=== PATIENT | female | born 1995 | race Caucasian/White ===

== ENCOUNTER 2016-05-19 07:33 | Inpatient (IN) | payer SELFPAY ==
[2016-05-19 08:51] LABS: APPEARANCE,URINE CLOUDY; BILIRUBIN,URINE NEGATIVE (NEGATIVE); GLUCOSE, URINE NEGATIVE (NEGATIVE); KETONES,URINE NEGATIVE (NEGATIVE); LEUKOCYTE ESTERASE,URINE LARGE (NEGATIVE); NITRITE,URINE NEGATIVE (NEGATIVE); PROTEIN,URINE 100 mg/dL (NEGATIVE); URINE SPECIFIC GRAVITY 1.014; UROBILINOGEN,URINE NEGATIVE mg/dL (<2.0)
--- NOTE | 2016-05-19 09:12 | ER Document Report ---
ED General - General Chief Complaint: Flank Pain Stated Complaint: RIB PAIN Mode of Arrival: Ambulatory Information source: Patient Notes: 20-year-old female presents with complaints of left flank pain associated with burning on urination over the past week. Patient notes she took over-the- counter Azo with improvement of the burning. Patient notes intermittent fever at night admits to one episode of nausea TRAVEL OUTSIDE OF THE [place] IN LAST 30 DAYS: No - HPI Onset: Last week Onset/Duration: Persistent, Worse Quality of pain: Achy Severity: Mild Pain Level: 1 Associated symptoms: Fever, Nausea Exacerbated by: Denies Relieved by: Denies Similar symptoms previously: No Recently seen / treated by doctor: No - Related Data Allergies/Adverse Reactions: Penicillins Allergy (Verified 05/19/16 07:44) Past Medical History - Social History Smoking Status: Never Smoker Cigarette use (# per day): No Chew tobacco use (# tins/day): No Smoking Education Provided: No Frequency of alcohol use: None Drug Abuse: None Family History: Reviewed & Not Pertinent Patient has suicidal ideation: No Patient has homicidal ideation: No Renal/ Medical History: Denies: Hx Peritoneal Dialysis Surgical Hx: Negative Review of Systems - Review of Systems Notes: REVIEW OF SYSTEMS: CONSTITUTIONAL : Denies fever, chills, or sweats. Denies recent illness. EENT: Denies eye, ear, throat, or mouth pain or symptoms. Denies nasal or sinus congestion or discharge. Denies throat, tongue, or mouth swelling or difficulty swallowing. CARDIOVASCULAR: Denies chest pain. Denies palpitations or racing or irregular heart beat. Denies ankle edema. RESPIRATORY: Denies cough, cold, or chest congestion. Denies shortness of breath, difficulty breathing, or wheezing. GASTROINTESTINAL: Admits to left flank pain GENITOURINARY: Admits to burning on urination FEMALE GENITOURINARY: Denies vaginal bleeding, heavy or abnormal periods, irregular periods. Denies vaginal discharge or odor. MUSCULOSKELETAL: Denies back or neck pain or stiffness. Denies joint pain or swelling. SKIN: Denies rash, lesions or sores. HEMATOLOGIC : Denies easy bruising or bleeding. LYMPHATIC: Denies swollen, enlarged glands. NEUROLOGICAL: Denies confusion or altered mental status. Denies passing out or loss of consciousness. Denies dizziness or lightheadedness. Denies headache. Denies weakness or paralysis or loss of use of either side. Denies problems with gait or speech. Denies sensory loss, numbness, or tingling. Denies seizures. PSYCHIATRIC: Denies anxiety or stress. Denies depression, suicidal ideation, or homicidal ideation. ALL OTHER SYSTEMS REVIEWED AND NEGATIVE. Dictation was performed using [employer] voice recognition software PHYSICAL EXAMINATION: GENERAL: Well-appearing, well-nourished and in no acute distress. HEAD: Atraumatic, normocephalic. EYES: Pupils equal round and reactive to light, extraocular movements intact, conjunctiva are normal. ENT: Nares patent, oropharynx clear without exudates. Moist mucous membranes. NECK: Normal range of motion, supple without lymphadenopathy LUNGS: Breath sounds clear to auscultation bilaterally and equal. No wheezes rales or rhonchi. HEART: Regular rate and rhythm without murmurs was noted to be 140 on arrival patient was anxious at that time ABDOMEN: Soft, nontender, nondistended abdomen. No guarding, no rebound. No masses appreciated. Female : deferred Musculoskeletal: Normal range of motion, no pitting or edema. No cyanosis. NEUROLOGICAL: Cranial nerves grossly intact. Normal speech, normal gait. Normal sensory, motor exams PSYCH: Normal mood, normal affect. SKIN: Warm, Dry, normal turgor, no rashes or lesions noted. Physical Exam - Vital signs Vitals: Temp Resp BP Pulse Ox 98.9 F 18 132/87 H 99 05/19/16 07:38 05/19/16 07:38 05/19/16 07:38 05/19/16 07:38 Course - Re-evaluation Re-evalutation: 05/19/16 09:11 Patient looks extremely well, urinalysis is consistent with an infectious process. Given that she is flank pain and fevers it appears the patient has pyelonephritis at this time. Patient will be started on antibiotics and is otherwise stable for discharge After performing a Medical Screening Examination, I estimate there is LOW risk for ACUTE APPENDICITIS, BOWEL OBSTRUCTION, ACUTE CHOLECYSTITIS, PERFORATED DIVERTICULITIS, INCARCERATED HERNIA, PANCREATITIS, PELVIC INFLAMMATORY DISEASE, PERFORATED ULCER, ECTOPIC , or TUBO-OVARIAN ABSCESS, thus I consider the discharge disposition reasonable. Also, there is no evidence or peritonitis , sepsis, or toxicity. The patient and I have discussed the diagnosis and risks , and we agree with discharging home with close follow-up with the understanding that symptoms and presentations can change. We also discussed returning to the Emergency Department immediately if new or worsening symptoms occur. We have discussed the symptoms which are most concerning (e.g., bloody stool, fever, changing or worsening pain, vomiting) that necessitate immediate return. - Vital Signs Vital signs: Temp Pulse Resp BP Pulse Ox 98.9 F 140 H 18 132/87 H 99 05/19/16 07:38 05/19/16 07:45 05/19/16 07:38 05/19/16 07:38 05/19/16 07:38 - Laboratory Laboratory results interpreted by me: 05/19/16 08:23 Urine Protein 100 H Urine Blood MODERATE H Ur Leukocyte Esterase LARGE H Discharge - Discharge Clinical Impression: Pyelonephritis, Flank pain Condition: Stable Disposition: HOME, SELF-CARE Instructions: Pyelonephritis ([facility]) Additional Instructions: Follow up with your physician tomorrow for further care or return to the ED IMMEDIATELY if symptoms worsen or new concerns occur Prescriptions: Ciprofloxacin HCl [Cipro 500 mg Tablet] 500 mg PO BID #20 tablet Ondansetron [Zofran Odt 4 mg Tablet] 1 - 2 tab PO Q4H PRN #15 tab.rapdis PRN Reason: For Nausea/Vomiting
[2016-05-19] MEDS: NORMAL SALINE 1000 ML 1,000 ML IV PRN ×4 (09:22→21:53)
[2016-05-19] MEDS ORDERED: KETOROLAC TROMETHAMINE INJ/PF 30 MG/1 ML SDV IV ONE (09:46)
[2016-05-19 10:48] LABS: HEMATOCRIT 45.1 % (36.0-47.0); HEMOGLOBIN 14.5 g/dL (12.0-15.5); HGB HCT DIFFERENCE -1.6; MEAN CORPUSCULAR HEMOGLOBIN 27.9 pg (27.0-33.4); MEAN CORPUSCULAR HGB CONC 32.2 g/dL (32.0-36.0); MEAN CORPUSCULAR VOLUME 87 fl (80-97); WHITE BLOOD COUNT 19.9 10^3/uL (4.0-10.5)
[2016-05-19 11:04] LABS: ALANINE AMINOTRANSFERASE 41 U/L (9-52); ALBUMIN 4.1 g/dL (3.5-5.0); ALKALINE PHOSPHATASE 90 U/L (38-126); ANION GAP 12 (5-19); ASPARTATE AMINO TRANSFERASE 27 U/L (14-36); BLOOD UREA NITROGEN 13 mg/dL (7-20); CALCIUM 9.7 mg/dL (8.4-10.2); CARBON DIOXIDE 22 mmol/L (22-30); CHLORIDE 107 mmol/L (98-107); CREATININE RESULT 0.73 mg/dL (0.52-1.25); GLUCOSE 83 mg/dL (75-110); POTASSIUM 3.9 mmol/L (3.6-5.0); SODIUM 140.7 mmol/L (137-145); TOTAL PROTEIN 7.6 g/dL (6.3-8.2)
[2016-05-19 11:17] LABS: BASOPHILS % (MANUAL) 0 % (0-2); EOSINOPHILS % (MANUAL) 0 % (0-6); LYMPHOCYTES % (MANUAL) 4 % (13-45); TOTAL CELLS COUNTED 100
[2016-05-19 11:18] LABS: ANISOCYTOSIS SLIGHT
[2016-05-19] MEDS ORDERED: NORMAL SALINE 1000 ML 1,000 ML IV ONE (11:21)
[2016-05-19] MEDS ORDERED: CIPROFLOXACIN 200 MG/D5W RTU 100 ML IV SCH (12:00)
[2016-05-19] MEDS ORDERED: CIPROFLOXACIN 200 MG/D5W RTU 200 MG/100 ML RTUPB IV ONE (13:00)
--- NOTE | 2016-05-19 14:26 | PDOC H&P ---
History of Present Illness Admission Date/PCP: 05/19/16 13:49 Patient complains of: Urinary burning and frequency. Fever and weakness History of Present Illness: WALESKA BERNAL is a 20 year old female who reports to [facility] emergency department this afternoon, with complaints of fever, weakness, left flank pain and urinary burning and frequency. She states her symptoms began 2 days ago and have worsened significantly today. She does not have a history of frequent urinary tract infections she states she's had 1 prior. She denies any nausea, vomiting or abdominal pain. She denies any vaginal discharge. She states her last menstrual cycle was 2 weeks prior. She has no prior health history. She was found to the ER provider to be very tachycardic with a heart rate in the 140s to 150s, with a systolic blood pressure in the 90s. She states her temperature was 102 prior to her arrival here. She had taken ibuprofen at home prior to her coming into the hospital. Her temperature is now 100.2. Past Medical History Cardiac Medical History: Reports: None Pulmonary Medical History: Reports: None EENT Medical History: Reports: None Neurological Medical History: Reports: None Endocrine Medical History: Reports: None Renal/ Medical History: Reports: None Malignancy Medical History: Reports: None GI Medical History: Reports: None Musculoskeltal Medical History: Reports: None Skin Medical History: Reports: None Psychiatric Medical History: Reports: None Traumatic Medical History: Reports: None Hematology: Reports: None Infectious Medical History: Reports: None Social History Information Source: Patient Lives with: Spouse/Significant other Smoking Status: Never Smoker Frequency of Alcohol Use: Rare Hx Recreational Drug Use: No Hx Prescription Drug Abuse: No - Advance Directive Resuscitation Status: Full Code Surrogate healthcare decision maker:: Jatin Miller Family History Family History: Reviewed & Not Pertinent Parental Family History Reviewed: Yes Children Family History Reviewed: NA Sibling(s) Family History Reviewed.: Yes Medication/Allergy Allergies/Adverse Reactions: Penicillins Allergy (Verified 05/19/16 07:44) Review of Systems Constitutional: PRESENT: chills, fever(s), weakness Eyes: ABSENT: visual disturbances Ears: PRESENT: as per HPI Cardiovascular: ABSENT: chest pain, dyspnea on exertion, edema, orthropnea, palpitations Respiratory: ABSENT: cough, hemoptysis Genitourinary: ABSENT: dysuria, hematuria Musculoskeletal: ABSENT: joint swelling Integumentary: ABSENT: rash, wounds Neurological: ABSENT: abnormal gait, abnormal speech, confusion, dizziness, focal weakness, syncope Psychiatric: ABSENT: anxiety, depression, homidical ideation, suicidal ideation Endocrine: ABSENT: cold intolerance, heat intolerance, polydipsia, polyuria Hematologic/Lymphatic: ABSENT: easy bleeding, easy bruising Physical Exam Vital Signs: Temp Pulse Resp BP Pulse Ox 98.4 F 136 H 18 136/76 H 100 05/19/16 11:46 05/19/16 11:46 05/19/16 07:38 05/19/16 09:12 05/19/16 11:46 General appearance: PRESENT: no acute distress, well-developed, well-nourished Head exam: PRESENT: atraumatic, normocephalic Eye exam: PRESENT: conjunctiva pink, EOMI, PERRLA. ABSENT: scleral icterus Mouth exam: PRESENT: moist, tongue midline Neck exam: ABSENT: carotid bruit, JVD, lymphadenopathy, thyromegaly Respiratory exam: PRESENT: clear to auscultation h[place]. ABSENT: rales, rhonchi, wheezes Cardiovascular exam: PRESENT: RRR. ABSENT: diastolic murmur, rubs, systolic murmur Pulses: PRESENT: normal dorsalis pedis pul Vascular exam: PRESENT: normal capillary refill GI/Abdominal exam: PRESENT: normal bowel sounds, soft. ABSENT: distended, guarding, mass, organolmegaly, rebound, tenderness Rectal exam: PRESENT: deferred Extremities exam: PRESENT: full ROM. ABSENT: calf tenderness, clubbing, pedal edema Neurological exam: PRESENT: alert, awake, oriented to person, oriented to place , oriented to time, oriented to situation, CN II-XII grossly intact. ABSENT: motor sensory deficit Psychiatric exam: PRESENT: appropriate affect, normal mood. ABSENT: homicidal ideation, suicidal ideation Skin exam: PRESENT: dry, intact, warm. ABSENT: cyanosis, rash Results Impressions: Limited or Localized CT 05/19/16 11:21 IMPRESSION: NO SIGNIFICANT OR ACUTE PROCESS IN THE ABDOMEN OR PELVIS. Assessment & Plan - Diagnosis (1) Sepsis Qualifiers: Sepsis type: sepsis due to unspecified organism Is this a current diagnosis for this admission?: YesPlan: Patient will be fluid resuscitated and given IV broad spectrum antibiotics (2) Pyelonephritis Is this a current diagnosis for this admission?: YesPlan: IV antibiotics. Toradol for pain (3) Flank pain Is this a current diagnosis for this admission?: YesPlan: Toradol 30 mg IV prn - Time Time Spent: 50 to 70 Minutes Critical Time spent with patient: 25-34 minutes Medications reviewed and adjusted accordingly: Yes Anticipated discharge: Home
[2016-05-19] MEDS: ACETAMINOPHEN 325 MG TABLET PO PRN ×2 (15:23→19:30)
[2016-05-19] MEDS: KETOROLAC TROMETHAMINE INJ/PF 30 MG/1 ML SDV IV PRN ×2 (15:51→22:07)
[2016-05-19] MEDS ORDERED: MORPHINE SULFATE 10 MG/ML INJ IV PRN ×2 (19:41→19:56)
[2016-05-19] MEDS ORDERED: CEFTRIAXONE 1 GM/D5W RTU 1 GM/50 ML RTUPB IV ONE (20:00)
[2016-05-19] MEDS ORDERED: MORPHINE SULFATE 10 MG/ML INJ IV ONE (20:00)
[2016-05-19] MEDS: ONDANSETRON HCL INJ/PF 4 MG/2 ML SDV IV PRN (20:08)
[2016-05-19] MEDS: CIPROFLOXACIN 400 MG/D5W RTU 200 ML IV SCH (21:53)
[2016-05-19] MEDS ORDERED: CIPROFLOXACIN 200 MG/D5W RTU 200 MG/100 ML RTUPB IV SCH (22:00)
[2016-05-20] MEDS: ACETAMINOPHEN 325 MG TABLET PO PRN ×4 (00:29→20:07)
[2016-05-20] MEDS: ZOLPIDEM TARTRATE 5 MG TABLET PO PRN (00:43)
[2016-05-20 07:37] LABS: HEMATOCRIT 39.3 % (36.0-47.0); HEMOGLOBIN 12.9 g/dL (12.0-15.5); HGB HCT DIFFERENCE -0.6; MEAN CORPUSCULAR HEMOGLOBIN 28.2 pg (27.0-33.4); MEAN CORPUSCULAR HGB CONC 32.8 g/dL (32.0-36.0); MEAN CORPUSCULAR VOLUME 86 fl (80-97); RED BLOOD COUNT 4.57 10^6/uL (3.72-5.28); RED CELL DISTRIBUTION WIDTH 14.1 % (11.5-14.0); WHITE BLOOD COUNT 23.6 10^3/uL (4.0-10.5)
[2016-05-20 07:48] LABS: ANION GAP 9 (5-19); BLOOD UREA NITROGEN 8 mg/dL (7-20); CALCIUM 8.7 mg/dL (8.4-10.2); CARBON DIOXIDE 19 mmol/L (22-30); CHLORIDE 114 mmol/L (98-107); CREATININE RESULT 0.67 mg/dL (0.52-1.25); GLUCOSE 104 mg/dL (75-110); POTASSIUM 4.5 mmol/L (3.6-5.0); SODIUM 142.3 mmol/L (137-145)
[2016-05-20 08:01] LABS: BAND NEUTROPHILS % (MANUAL) 7 % (3-5); BASOPHILS % (MANUAL) 1 % (0-2); EOSINOPHILS % (MANUAL) 0 % (0-6); LYMPHOCYTES % (MANUAL) 4 % (13-45); TOTAL CELLS COUNTED 100
[2016-05-20 08:03] LABS: BURR CELLS SLIGHT; OVALOCYTES SLIGHT; POIKILOCYTOSIS SLIGHT
[2016-05-20] MEDS: KETOROLAC TROMETHAMINE INJ/PF 30 MG/1 ML SDV IV PRN ×2 (09:15→20:09)
--- NOTE | 2016-05-20 09:22 | PDOC PROGRESS REPORT ---
Subjective Progress Note for:: 05/20/16 Subjective:: Patient is seen on morning rounds. She is resting in bed. She is still having left flank pain and low grade fevers. Her tachycardia has improved but not resolved. She denies any other symptoms. She does not have much of an appetite at the present time. She is sometimes nauseated, but denies vomiting or diarrhea. Her fiance is at the bedside. Physical Exam Vital Signs: Temp Pulse Resp BP Pulse Ox 99.9 F 124 H 18 137/84 H 98 05/20/16 07:55 05/20/16 07:55 05/20/16 07:55 05/20/16 07:55 05/20/16 07:55 Intake & Output 05/19/16 05/20/16 05/21/16 06:59 06:59 06:59 Output Total 700 Balance -700 Weight 69.4 kg General appearance: PRESENT: no acute distress, well-developed, well-nourished Head exam: PRESENT: atraumatic, normocephalic Eye exam: PRESENT: conjunctiva pink, EOMI, PERRLA. ABSENT: scleral icterus Ear exam: PRESENT: normal external ear exam Mouth exam: PRESENT: moist, tongue midline Neck exam: ABSENT: carotid bruit, JVD, lymphadenopathy, thyromegaly Respiratory exam: PRESENT: clear to auscultation h[place]. ABSENT: rales, rhonchi, wheezes Cardiovascular exam: PRESENT: RRR. ABSENT: diastolic murmur, rubs, systolic murmur Pulses: PRESENT: normal dorsalis pedis pul Vascular exam: PRESENT: normal capillary refill GI/Abdominal exam: PRESENT: normal bowel sounds, soft, other - mild left CVA tenderness. ABSENT: distended, guarding, mass, organolmegaly, rebound, tenderness Rectal exam: PRESENT: deferred Extremities exam: PRESENT: full ROM. ABSENT: calf tenderness, clubbing, pedal edema Neurological exam: PRESENT: alert, awake, oriented to person, oriented to place , oriented to time, oriented to situation, CN II-XII grossly intact. ABSENT: motor sensory deficit Psychiatric exam: PRESENT: appropriate affect, normal mood. ABSENT: homicidal ideation, suicidal ideation Skin exam: PRESENT: dry, intact, warm. ABSENT: cyanosis, rash Results Laboratory Results: 05/20/16 07:18 05/20/16 07:18 05/20/16 05/20/16 07:18 07:18 WBC 23.6 H RBC 4.57 Hgb 12.9 Hct 39.3 MCV 86 MCH 28.2 MCHC 32.8 RDW 14.1 H Plt Count 128 L Seg Neutrophils % Not Reportable Lymphocytes % Not Reportable Monocytes % Not Reportable Eosinophils % Not Reportable Basophils % Not Reportable Absolute Neutrophils Not Reportable Absolute Lymphocytes Not Reportable Absolute Monocytes Not Reportable Absolute Eosinophils Not Reportable Absolute Basophils Not Reportable Sodium 142.3 Potassium 4.5 Chloride 114 H Carbon Dioxide 19 L Anion Gap 9 BUN 8 Creatinine 0.67 Est GFR ( Amer) > 60 Est GFR (Non-Af Amer) > 60 Glucose 104 Calcium 8.7 Impressions: Limited or Localized CT 05/19/16 11:21 IMPRESSION: NO SIGNIFICANT OR ACUTE PROCESS IN THE ABDOMEN OR PELVIS. Assessment & Plan - Diagnosis (1) Sepsis Qualifiers: Sepsis type: sepsis due to unspecified organism Qualified Code(s): A41.9 - Sepsis, unspecified organism Is this a current diagnosis for this admission?: YesPlan: Patient will be fluid resuscitated and given IV broad spectrum antibiotics. Still having low grade fevers, tachycardia. Will add double antibiotic coverage until cultures return (2) Pyelonephritis Is this a current diagnosis for this admission?: YesPlan: IV antibiotics. Toradol for pain (3) Flank pain Is this a current diagnosis for this admission?: YesPlan: Toradol 30 mg IV prn - Time Time Spent with patient: 25-34 minutes Critical Time spent with patient: 15-24 minutes Medications reviewed and adjusted accordingly: Yes Anticipated discharge: Home
[2016-05-20] MEDS: CEFTRIAXONE 1 GM/D5W RTU 1 GM/50 ML RTUPB IV SCH (09:33)
[2016-05-20] MEDS: CIPROFLOXACIN 400 MG/D5W RTU 200 ML IV SCH (10:52)
[2016-05-20] MEDS ORDERED: CEFAZOLIN 1 GM/D5W RTU 50 ML IV SCH (12:00)
[2016-05-20] MEDS: NORMAL SALINE 1000 ML 1,000 ML IV PRN ×2 (14:02→22:55)
[2016-05-20] MEDS: ONDANSETRON HCL INJ/PF 4 MG/2 ML SDV IV PRN (14:02)
[2016-05-20] MEDS ORDERED: LEVOFLOXACIN 750 MG/D5W RTU 750 MG/150 ML RTUPB IV ONE (17:00)
[2016-05-21] MEDS: ZOLPIDEM TARTRATE 5 MG TABLET PO PRN (02:34)
[2016-05-21] MEDS: ONDANSETRON HCL INJ/PF 4 MG/2 ML SDV IV PRN ×3 (02:34→16:34)
[2016-05-21] MEDS: KETOROLAC TROMETHAMINE INJ/PF 30 MG/1 ML SDV IV PRN (04:29)
[2016-05-21] MEDS: ACETAMINOPHEN 325 MG TABLET PO PRN (04:30)
[2016-05-21] MEDS: NORMAL SALINE 1000 ML 1,000 ML IV PRN (07:54)
[2016-05-21] MEDS: CEFTRIAXONE 1 GM/D5W RTU 1 GM/50 ML RTUPB IV SCH (09:11)
[2016-05-21 09:16] LABS: HGB HCT DIFFERENCE -0.5; MEAN CORPUSCULAR HEMOGLOBIN 28.4 pg (27.0-33.4); MEAN CORPUSCULAR HGB CONC 32.9 g/dL (32.0-36.0); MEAN CORPUSCULAR VOLUME 86 fl (80-97); RED CELL DISTRIBUTION WIDTH 14.3 % (11.5-14.0); WHITE BLOOD COUNT 22.6 10^3/uL (4.0-10.5)
[2016-05-21 09:37] LABS: BAND NEUTROPHILS % (MANUAL) 7 % (3-5); BASOPHILS % (MANUAL) 0 % (0-2); EOSINOPHILS % (MANUAL) 0 % (0-6); LYMPHOCYTES % (MANUAL) 4 % (13-45); TOTAL CELLS COUNTED 100
[2016-05-21 09:38] LABS: RBC MORPHOLOGY COMMENT NORMO-CYTIC/CHROMIC
[2016-05-21] MEDS ORDERED: LEVOFLOXACIN 750 MG/D5W RTU 750 MG/150 ML RTUPB IV SCH (10:00)
[2016-05-21 10:19] LABS: HEMOGLOBIN 10.5 g/dL (12.0-15.5)
[2016-05-21] MEDS ORDERED: NORMAL SALINE 1000 ML 1,000 ML IV PRN (12:53)
[2016-05-21] MEDS: IBUPROFEN 800 MG TABLET PO PRN (15:50)
[2016-05-22] MEDS ORDERED: ONDANSETRON 4 MG TAB.RAPDIS ONE (02:13)
[2016-05-22 06:44] LABS: ABSOLUTE LYMPHOCYTES (AUTO) 1.2 10^3/uL (0.5-4.7); ABSOLUTE MONOCYTES (AUTO) 1.1 10^3/uL (0.1-1.4); ABSOLUTE NEUT (AUTO) 11.8 10^3/uL (1.7-8.2); BASOPHILS % (AUTO) 0.2 % (0-2); EOSINOPHILS % (AUTO) 0.3 % (0-6); HEMATOCRIT 31.7 % (36.0-47.0); HEMOGLOBIN 10.5 g/dL (12.0-15.5); HGB HCT DIFFERENCE -0.2; LYMPHOCYTES % (AUTO) 8.6 % (13-45); MEAN CORPUSCULAR HEMOGLOBIN 28.2 pg (27.0-33.4); MEAN CORPUSCULAR HGB CONC 33.1 g/dL (32.0-36.0); MEAN CORPUSCULAR VOLUME 85 fl (80-97); MONOCYTES % (AUTO) 7.7 % (3-13); RED BLOOD COUNT 3.72 10^6/uL (3.72-5.28); RED CELL DISTRIBUTION WIDTH 14.2 % (11.5-14.0); SEGMENTED NEUTROPHILS % (AUTO) 83.2 % (42-78); WHITE BLOOD COUNT 14.2 10^3/uL (4.0-10.5)
[2016-05-22] MEDS: IBUPROFEN 800 MG TABLET PO PRN (06:52)
--- NOTE | 2016-05-22 07:59 | PDOC PROGRESS REPORT ---
Subjective Progress Note for:: 05/21/16 Subjective:: Patient is seen on morning rounds. She is resting in bed. She is no longer having flank pain or fever. Her tachycardia has improved but not resolved. She has had several episodes of vomiting She denies any other symptoms. She does not have much of an appetite at the present time. Her fiance is at the bedside. Physical Exam Vital Signs: Temp Pulse Resp BP Pulse Ox 98.8 F 115 H 18 127/82 H 100 05/22/16 04:00 05/22/16 04:00 05/22/16 04:00 05/22/16 04:00 05/21/16 19:00 Intake & Output 05/21/16 05/22/16 05/23/16 06:59 06:59 06:59 Intake Total 2211 967 Output Total 3100 1500 Balance -889 -533 Weight 71.5 kg General appearance: PRESENT: no acute distress, well-developed, well-nourished Head exam: PRESENT: atraumatic, normocephalic Eye exam: PRESENT: conjunctiva pink, EOMI, PERRLA. ABSENT: scleral icterus Ear exam: PRESENT: normal external ear exam Mouth exam: PRESENT: moist, tongue midline Neck exam: ABSENT: carotid bruit, JVD, lymphadenopathy, thyromegaly Respiratory exam: PRESENT: clear to auscultation [place]. ABSENT: rales, rhonchi, wheezes Cardiovascular exam: PRESENT: RRR. ABSENT: diastolic murmur, rubs, systolic murmur Pulses: PRESENT: normal dorsalis pedis pul Vascular exam: PRESENT: normal capillary refill GI/Abdominal exam: PRESENT: normal bowel sounds, soft. ABSENT: distended, guarding, mass, organolmegaly, rebound, tenderness Rectal exam: PRESENT: deferred Extremities exam: PRESENT: full ROM. ABSENT: calf tenderness, clubbing, pedal edema Neurological exam: PRESENT: alert, awake, oriented to person, oriented to place , oriented to time, oriented to situation, CN II-XII grossly intact. ABSENT: motor sensory deficit Psychiatric exam: PRESENT: appropriate affect, normal mood. ABSENT: homicidal ideation, suicidal ideation Skin exam: PRESENT: dry, intact, warm. ABSENT: cyanosis, rash Results Laboratory Results: 05/22/16 06:34 05/20/16 07:18 05/21/16 05/22/16 08:35 06:34 WBC 22.6 H 14.2 H RBC 3.70 L 3.72 Hgb 10.5 L D 10.5 L Hct 32.0 L 31.7 L MCV 86 85 MCH 28.4 28.2 MCHC 32.9 33.1 RDW 14.3 H 14.2 H Plt Count 151 193 Seg Neutrophils % Not Reportable 83.2 H Lymphocytes % Not Reportable 8.6 L Monocytes % Not Reportable 7.7 Eosinophils % Not Reportable 0.3 Basophils % Not Reportable 0.2 Absolute Neutrophils Not Reportable 11.8 H Absolute Lymphocytes Not Reportable 1.2 Absolute Monocytes Not Reportable 1.1 Absolute Eosinophils Not Reportable 0.0 Absolute Basophils Not Reportable 0.0 Impressions: Limited or Localized CT 05/19/16 11:21 IMPRESSION: NO SIGNIFICANT OR ACUTE PROCESS IN THE ABDOMEN OR PELVIS. Assessment & Plan - Diagnosis (1) Sepsis Qualifiers: Sepsis type: sepsis due to unspecified organism Qualified Code(s): A41.9 - Sepsis, unspecified organism Is this a current diagnosis for this admission?: YesPlan: Patient will be fluid resuscitated and given IV broad spectrum antibiotics. Still having low grade fevers, tachycardia. Will add double antibiotic coverage until cultures return (2) Pyelonephritis Is this a current diagnosis for this admission?: YesPlan: IV antibiotics. Toradol for pain (3) Flank pain Is this a current diagnosis for this admission?: YesPlan: Toradol 30 mg IV prn - Time Time Spent with patient: 25-34 minutes Critical Time spent with patient: 15-24 minutes Medications reviewed and adjusted accordingly: Yes
[2016-05-22 09:38] VITALS: BP 127/82
--- NOTE | 2016-05-22 11:52 | PDOC DISCHARGE SUMMARY ---
General - Admit/Disc Date/PCP Admission Date/Primary Care Provider: 05/19/16 13:23 Discharge Date: 05/22/16 - Discharge Diagnosis (1) Sepsis Is this a current diagnosis for this admission?: YesSummary: Resolved. Secondary to pyelonephritis (2) Pyelonephritis Is this a current diagnosis for this admission?: YesSummary: Continue antibiotics by mouth (3) Flank pain Is this a current diagnosis for this admission?: Yes - Additional Information Resuscitation Status: Full Code Discharge Diet: Regular Discharge Activity: Activity As Tolerated, Balance Activity w/Rest Home Medications: Acetaminophen [Tylenol 325 mg Tablet] 650 mg PO Q4HP PRN tablet 05/22/16 Ibuprofen 800 mg PO Q8HP PRN #30 tablet 05/22/16 Ibuprofen [Motrin 800 mg Tablet] 800 mg PO Q8HP PRN #30 tablet 05/22/16 Levofloxacin [Levaquin 750 mg Tablet] 750 mg PO DAILY #5 tablet 05/22/16 Ondansetron [Zofran Odt 4 mg Tablet] 1 - 2 tab PO Q4HP PRN #10 tab.rapdis History of Present Illness Patient complains of: Fever, left flank pain and dysuria History of Present Illness: WALESKA BERNAL is a 20 year old female who reports to [facility] emergency department this afternoon, with complaints of fever, weakness, left flank pain and urinary burning and frequency. She states her symptoms began 2 days ago and have worsened significantly today. She does not have a history of frequent urinary tract infections she states she's had 1 prior. She denies any nausea, vomiting or abdominal pain. She denies any vaginal discharge. She states her last menstrual cycle was 2 weeks prior. She has no prior health history. She was found to the ER provider to be very tachycardic with a heart rate in the 140s to 150s, with a systolic blood pressure in the 90s. She states her temperature was 102 prior to her arrival here. She had taken ibuprofen at home prior to her coming into the hospital. Her temperature is now 100.2. Hospital Course Hospital Course: Patient was admitted to [facility]. She was started on double coverage IV antibiotics for her pyelonephritis. She was given Toradol for her left flank pain. She continued to have fevers on and off for the next 24 hours. She remained tachycardic even after 3 L of IV fluid bolus given to her in the emergency room. Continued IV fluids 150 mL per hour for the next 24 hours. She had some difficulty with nausea and vomiting. Urine culture grew E coli. Blood cultures 2 are negative. Today she is feeling much better. She is ready for discharge. Physical Exam Vital Signs: Temp Pulse Resp BP Pulse Ox 99.1 F 101 H 16 127/82 H 99 05/22/16 09:35 05/22/16 09:35 05/22/16 09:35 05/22/16 09:35 05/22/16 09:35 Intake & Output 05/21/16 05/22/16 05/23/16 06:59 06:59 06:59 Intake Total 2211 2527 Output Total 3100 1500 Balance -889 1027 Weight 71.5 kg General appearance: PRESENT: no acute distress, well-developed, well-nourished Head exam: PRESENT: atraumatic, normocephalic Eye exam: PRESENT: conjunctiva pink, EOMI, PERRLA. ABSENT: scleral icterus Ear exam: PRESENT: normal external ear exam Neck exam: ABSENT: carotid bruit, JVD, lymphadenopathy, thyromegaly Respiratory exam: PRESENT: clear to auscultation [place]. ABSENT: rales, rhonchi, wheezes Cardiovascular exam: PRESENT: RRR. ABSENT: diastolic murmur, rubs, systolic murmur Vascular exam: PRESENT: normal capillary refill GI/Abdominal exam: PRESENT: soft, tenderness, other - suprapubic, left CVA tenderness Rectal exam: PRESENT: deferred Extremities exam: PRESENT: full ROM. ABSENT: calf tenderness, clubbing, pedal edema Neurological exam: PRESENT: alert, awake, oriented to person, oriented to place , oriented to time, oriented to situation, CN II-XII grossly intact. ABSENT: motor sensory deficit Psychiatric exam: PRESENT: appropriate affect, normal mood. ABSENT: homicidal ideation, suicidal ideation Skin exam: PRESENT: dry, intact, warm. ABSENT: cyanosis, rash Results Laboratory Results: 05/22/16 06:34 05/20/16 07:18 05/22/16 05/22/16 06:34 06:34 WBC 14.2 H RBC 3.72 Hgb 10.5 L Hct 31.7 L MCV 85 MCH 28.2 MCHC 33.1 RDW 14.2 H Plt Count 193 Seg Neutrophils % 83.2 H Lymphocytes % 8.6 L Monocytes % 7.7 Eosinophils % 0.3 Basophils % 0.2 Absolute Neutrophils 11.8 H Absolute Lymphocytes 1.2 Absolute Monocytes 1.1 Absolute Eosinophils 0.0 Absolute Basophils 0.0 Serum HCG, Qual NEGATIVE Impressions: Limited or Localized CT 05/19/16 11:21 IMPRESSION: NO SIGNIFICANT OR ACUTE PROCESS IN THE ABDOMEN OR PELVIS. Qualifiers PATEINT BEING DISCHARGED WITH ANY OF THE FOLLOWING DIAGNOSIS?: No Plan Discharge Plan: Home with fiance. Follow up with primary care provider as needed Time Spent: Less than 30 Minutes
== END 2016-05-22 10:21 | disposition home or self-care (01) | DRG 872 ==
LOC: ER 07:33 → EH 13:23 → UNDOADMIN 13:49 → 2N 15:07 → 2S 05-21 18:06
PROVIDERS: ADMIT Family Medicine; ATTEND Family Medicine
DX: A41.9 Sepsis, unspecified organism (principal); N12 Tubulo-interstitial nephritis, not specified as acute or chronic; B96.20 Unspecified Escherichia coli [E. coli] as the cause of diseases classified elsewhere; Z79.899 Other long term (current) drug therapy; Z88.1 Allergy status to other antibiotic agents
CPT/HCPCS: 36415; 76380; 80048; 80053; 81001; 81025; 83605; 84703; 85025; 87040; 87086; 87088; 87186; 96361; 96365; 96375; 99291; J0690; J0696; J0744; J1885; J1956; J2270; J2405; J7030; S0119

== ENCOUNTER 2017-02-14 19:41 | Emergency (ER) | payer MEDICAID, OTHER ==
--- NOTE | 2017-02-14 20:45 | ER Document Report ---
ED Medical Screen (RME) - General Chief Complaint: Abdominal Pain Stated Complaint: ABDOMINAL PAIN Time Seen by Provider: 02/14/17 20:44 Notes: Patient has had right upper quadrant abdominal pain and diarrhea since yesterday. TRAVEL OUTSIDE OF THE [place] IN LAST 30 DAYS: No - Related Data Allergies/Adverse Reactions: Penicillins Allergy (Verified 05/19/16 07:44) Past Medical History - Social History Chew tobacco use (# tins/day): No Frequency of alcohol use: Occasional Drug Abuse: None Renal/ Medical History: Denies: Hx Peritoneal Dialysis Physical Exam - Vital signs Vitals: Temp Pulse Resp BP Pulse Ox 98.5 F 79 18 135/92 H 98 02/14/17 19:42 02/14/17 19:42 02/14/17 19:42 02/14/17 19:42 02/14/17 19:42 Course - Vital Signs Vital signs: Temp Pulse Resp BP Pulse Ox 98.5 F 79 18 135/92 H 98 02/14/17 19:42 02/14/17 19:42 02/14/17 19:42 02/14/17 19:42 02/14/17 19:42
[2017-02-14 21:28] LABS: APPEARANCE,URINE CLEAR; BILIRUBIN,URINE NEGATIVE (NEGATIVE); GLUCOSE, URINE NEGATIVE (NEGATIVE); KETONES,URINE NEGATIVE (NEGATIVE); LEUKOCYTE ESTERASE,URINE NEGATIVE (NEGATIVE); NITRITE,URINE NEGATIVE (NEGATIVE); PROTEIN,URINE NEGATIVE (NEGATIVE); URINE SPECIFIC GRAVITY 1.008; UROBILINOGEN,URINE NEGATIVE mg/dL (<2.0)
[2017-02-14 21:47] LABS: ABSOLUTE BASOPHILS # (AUTO) 0.1 10^3/uL (0.0-0.2); ABSOLUTE EOSINOPHILS # (AUTO) 0.1 10^3/uL (0.0-0.6); ABSOLUTE LYMPHOCYTES (AUTO) 2.5 10^3/uL (0.5-4.7); ABSOLUTE MONOCYTES (AUTO) 0.8 10^3/uL (0.1-1.4); ABSOLUTE NEUT (AUTO) 5.4 10^3/uL (1.7-8.2); EOSINOPHILS % (AUTO) 1.5 % (0-6); HEMATOCRIT 39.5 % (36.0-47.0); HEMOGLOBIN 13.4 g/dL (12.0-15.5); HGB HCT DIFFERENCE 0.7; LYMPHOCYTES % (AUTO) 27.9 % (13-45); MEAN CORPUSCULAR HEMOGLOBIN 28.7 pg (27.0-33.4); MEAN CORPUSCULAR HGB CONC 33.8 g/dL (32.0-36.0); MEAN CORPUSCULAR VOLUME 85 fl (80-97); MONOCYTES % (AUTO) 8.6 % (3-13); RED BLOOD COUNT 4.65 10^6/uL (3.72-5.28); RED CELL DISTRIBUTION WIDTH 14.1 % (11.5-14.0); WHITE BLOOD COUNT 8.9 10^3/uL (4.0-10.5)
--- NOTE | 2017-02-14 21:57 | ER Document Report ---
ED General - General Chief Complaint: Abdominal Pain Stated Complaint: ABDOMINAL PAIN Time Seen by Provider: 02/14/17 20:44 Notes: Patient is a 21 year old female without past medical history, no prior surgical history, who presents with 24 hours of right middle and upper abdominal pain. Patient does describe it as a constant, cramping, throbbing pain. Nothing improves or worsens the pain. Patient reports that she has been able to tolerate oral intake without any worsening of the pain. She does note that she has had 2 episodes of watery diarrhea today. She has not had any vomiting. She denies any fever. No history of similar symptoms in the past. She has not seen a primary doctor regarding today's concerns. No known sick contacts. She denies any vaginal bleeding or discharge. No dysuria or flank pain. TRAVEL OUTSIDE OF THE [place] IN LAST 30 DAYS: No - Related Data Allergies/Adverse Reactions: Penicillins Allergy (Verified 05/19/16 07:44) Past Medical History - General Information source: Patient - Social History Smoking Status: Never Smoker Chew tobacco use (# tins/day): No Frequency of alcohol use: Occasional Drug Abuse: None Lives with: Spouse/Significant other Family History: Reviewed & Not Pertinent Patient has suicidal ideation: No Patient has homicidal ideation: No Renal/ Medical History: Denies: Hx Peritoneal Dialysis Review of Systems - Review of Systems Notes: Constitutional: Negative for fever. HENT: Negative for sore throat. Eyes: Negative for visual changes. Cardiovascular: Negative for chest pain. Respiratory: Negative for shortness of breath. Gastrointestinal: Positive for abdominal pain and vomiting. Genitourinary: Negative for dysuria. Musculoskeletal: Negative for back pain. Skin: Negative for rash. Neurological: Negative for headaches, weakness or numbness. 10 point ROS negative except as marked above and in HPI. Physical Exam - Vital signs Vitals: Temp Pulse Resp BP Pulse Ox 98.5 F 79 18 135/92 H 98 02/14/17 19:42 02/14/17 19:42 02/14/17 19:42 02/14/17 19:42 02/14/17 19:42 Interpretation: Normal Notes: PHYSICAL EXAMINATION: GENERAL: Well-appearing, well-nourished and in no acute distress. HEAD: Atraumatic, normocephalic. EYES: Pupils equal round and reactive to light, extraocular movements intact, sclera anicteric, conjunctiva are normal. ENT: nares patent, oropharynx clear without exudates. Moist mucous membranes. NECK: Normal range of motion, supple without lymphadenopathy LUNGS: Breath sounds clear to auscultation bilaterally and equal. No wheezes rales or rhonchi. HEART: Regular rate and rhythm without murmurs ABDOMEN: Soft, mild right upper quadrant and mid abdominal tenderness. No focal right lower or right adnexal abdominal tenderness. Normoactive bowel sounds. No guarding, no rebound. No masses appreciated. EXTREMITIES: Normal range of motion, no pitting or edema. No cyanosis. NEUROLOGICAL: No focal neurological deficits. Moves all extremities spontaneously and on command. PSYCH: Normal mood, normal affect. SKIN: Warm, Dry, normal turgor, no rashes or lesions noted. Course - Re-evaluation Re-evalutation: 02/14/17 21:55 Patient presents with 24 hours of mid and right upper quadrant abdominal pain. She has had associated diarrhea. On examination patient is very well in appearance, vitals within normal limits without fever or tachycardia. She has mild right upper quadrant abdominal tenderness but no otherwise localized tenderness. A right upper quadrant ultrasound performed at the bedside does not demonstrate any evidence of gallstones, gallbladder wall thickening or pericholecystic fluid I do not believe a formal ultrasound is indicated at this time given this very reassuring bedside examination. Patient also does not have a clinical history to suggest an acute cholecystitis she has not had any worsening with food intake and has not had any vomiting. Laboratories unremarkable without leukocytosis, LFT changes. Urinalysis is clear and the patient is not . She does not have any significant tenderness in the right lower quadrant, no rebound or guarding. I have had a risks and benefits conversation with the patient regarding CT imaging of the abdomen and pelvis at this time. 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 We discussed the risks of radiation to the abdomen and pelvis. We discussed the alternative of close follow-up with their primary care physician for a recheck of the abdomen within 24 hours as well as reasons to return to the emergency department. After this conversation , the patient has elected to avoid CT imaging of the abdomen and pelvis at this time. They have capacity. They have verbalized the importance of close follow- up as well as reasons to return to the emergency department including worsening abdominal pain, fever, persistent vomiting, or any other symptoms that are worrisome to them. - Vital Signs Vital signs: Temp Pulse Resp BP Pulse Ox 98.5 F 70 16 121/66 97 02/14/17 19:42 02/14/17 22:46 02/14/17 22:46 02/14/17 22:46 02/14/17 22:46 - Laboratory Result Diagrams: 02/14/17 21:35 02/14/17 21:35 Laboratory results interpreted by me: 02/14/17 21:35 RDW 14.1 H Discharge - Discharge Clinical Impression: Right upper quadrant abdominal pain Diarrhea Qualifiers: Diarrhea type: unspecified type Qualified Code(s): R19.7 - Diarrhea, unspecified Condition: Good Disposition: HOME, SELF-CARE Additional Instructions: You have been seen in the Emergency Department (ED) for abdominal pain. Your evaluation did not identify a clear cause of your symptoms but was generally reassuring. Please follow up with your doctor as soon as possible regarding today's emergent visit and the symptoms that are bothering you. Return to the ED if your abdominal pain worsens or fails to improve, you develop bloody vomiting, bloody diarrhea, you are unable to tolerate fluids due to vomiting, fever greater than 101, or other symptoms that concern you.
[2017-02-14 22:13] LABS: ALANINE AMINOTRANSFERASE 25 U/L (9-52); ALBUMIN 4.7 g/dL (3.5-5.0); ALKALINE PHOSPHATASE 114 U/L (38-126); ANION GAP 15 (5-19); ASPARTATE AMINO TRANSFERASE 26 U/L (14-36); BILIRUBIN,DIRECT 0.4 mg/dL (0.0-0.4); BILIRUBIN,TOTAL 0.5 mg/dL (0.2-1.3); BLOOD UREA NITROGEN 9 mg/dL (7-20); CARBON DIOXIDE 23 mmol/L (22-30); CHLORIDE 106 mmol/L (98-107); CREATININE RESULT 0.66 mg/dL (0.52-1.25); GLUCOSE 76 mg/dL (75-110); POTASSIUM 4.2 mmol/L (3.6-5.0); SODIUM 143.9 mmol/L (137-145); TOTAL PROTEIN 7.8 g/dL (6.3-8.2)
[2017-02-14 22:48] VITALS: BP 121/66
== END 2017-02-14 22:46 | disposition home or self-care (01) ==
LOC: ER 19:41
DX: R10.11 Right upper quadrant pain (principal); R19.7 Diarrhea, unspecified; Z88.0 Allergy status to penicillin
CPT/HCPCS: 36415; 80053; 81001; 81025; 85025; 99284

== ENCOUNTER 2017-06-19 14:15 | Emergency (ER) | payer OTHER ==
--- NOTE | 2017-06-19 15:09 | ER Document Report ---
ED Medical Screen (RME) - General TRAVEL OUTSIDE OF THE [place] IN LAST 30 DAYS: No - General Chief Complaint: Bloody Stools Stated Complaint: BLOOD WITH BOWEL MOVEMENT Time Seen by Provider: 06/19/17 15:06 Notes: 21-year-old female patient almost 19 weeks . Reports noted bright red blood in stool yesterday that continues. When she has a bowel movement it is painful and when she wipes it is painful. No past history of anal fissures or hemorrhoids. I have greeted and performed a rapid initial assessment of this patient. A comprehensive ED assessment and evaluation of the patient, analysis of test results and completion of the medical decision making process will be conducted by additional ED providers. (JIM HUA) - Related Data Allergies/Adverse Reactions: Penicillins Allergy (Verified 06/19/17 14:16) Past Medical History Renal/ Medical History: Denies: Hx Peritoneal Dialysis - Vital signs Vitals: Temp Pulse Resp BP Pulse Ox 98.3 F 97 14 138/80 H 99 06/19/17 14:21 06/19/17 14:21 06/19/17 14:21 06/19/17 14:21 06/19/17 14:21 - Vital Signs Vital signs: Temp Pulse Resp BP Pulse Ox 98.3 F 97 14 138/80 H 99 06/19/17 14:21 06/19/17 14:21 06/19/17 14:21 06/19/17 14:21 06/19/17 14:21 Doctor's Discharge - Discharge Clinical Impression: Hemorrhoid Qualifiers: Hemorrhoid type: unspecified Qualified Code(s): K64.9 - Unspecified hemorrhoids Condition: Good Disposition: HOME, SELF-CARE Instructions: Hemorrhoids ([facility]) Additional Instructions: See your OB in follow up tomorrow.
--- NOTE | 2017-06-19 16:55 | ER Document Report ---
ED General - General Chief Complaint: Bloody Stools Stated Complaint: BLOOD WITH BOWEL MOVEMENT Time Seen by Provider: 06/19/17 15:06 TRAVEL OUTSIDE OF THE [place] IN LAST 30 DAYS: No - HPI Notes: 21-year-old female who is 19 weeks by dates presents with blood in her stool. Patient's had 2 or 3 bowel movements which she has had blood mixed in the toilet water. Bright red nature. Mild amount of pain and burning. She is frequently constipated and has been straining recently. No unplanned weight loss, use of anticoagulants, no abdominal pain. Uncomplicated thus far. Sudden onset. Nonradiating. No other modifying factors, no other associated symptoms, no other provocative or palliative factors. - Related Data Allergies/Adverse Reactions: Penicillins Allergy (Verified 06/19/17 14:16) Past Medical History - Social History Smoking Status: Never Smoker Chew tobacco use (# tins/day): No Frequency of alcohol use: None Drug Abuse: None Family History: Reviewed & Not Pertinent Patient has suicidal ideation: No Patient has homicidal ideation: No - Medical History Medical History: Other - Denies pertinent history, Renal/ Medical History: Denies: Hx Peritoneal Dialysis Review of Systems - Review of Systems Notes: Review of systems as in the history of present illness, otherwise negative. Physical Exam - Vital signs Vitals: Temp Pulse Resp BP Pulse Ox 98.3 F 97 14 138/80 H 99 06/19/17 14:21 06/19/17 14:21 06/19/17 14:21 06/19/17 14:21 06/19/17 14:21 - Notes Notes: General: Well developed . HEENT: Normocephalic, atraumatic. Pupils equal round reactive to light. No JVD. Chest: No trauma. Respiratory: Good air exchange, normal excursion. Cardiac: Regular rhythm. No murmurs or gallops. Abdomen: Soft, benign. Nondistended. Nontender. Back: No asymmetry or gross abnormality. Motor: Grossly normal power and tone. Neurologic: Alert, nonfocal. Cranial nerves II-12 are intact. Sensation intact. Vascular: Well perfused. Normal peripheral pulses. Skin: No petechiae or purpura. Rectal: Nonthrombosed non-actively bleeding hemorrhoid are noted. No active blood, heme negative. Course - Re-evaluation Re-evalutation: 06/19/17 16:54 This is a well-appearing female with likely hemorrhoidal bleeding. She has no high-risk features, I do not believe laboratory work will be helpful. Her conjunctiva is extremely pink and well-perfused, symptomatic anemia is not present on clinical exam. I have asked that she follow-up with her LOG INSPECTOR, given instruction with regard to stool softeners and treatment for hemorrhoids. - Vital Signs Vital signs: Temp Pulse Resp BP Pulse Ox 98.3 F 97 14 138/80 H 99 06/19/17 14:21 06/19/17 14:21 06/19/17 14:21 06/19/17 14:21 06/19/17 14:21 Discharge - Discharge Clinical Impression: Hemorrhoid Qualifiers: Hemorrhoid type: unspecified Qualified Code(s): K64.9 - Unspecified hemorrhoids Condition: Good Disposition: HOME, SELF-CARE Instructions: Hemorrhoids ([facility]) Additional Instructions: See your OB in follow up tomorrow.
[2017-06-19 17:30] VITALS: BP 114/68
== END 2017-06-19 17:20 | disposition home or self-care (01) ==
LOC: ER 14:15
DX: K64.9 Unspecified hemorrhoids (principal); K92.1 Melena
CPT/HCPCS: 82272; 99283

== ENCOUNTER 2017-12-08 21:58 | Emergency (ER) | payer OTHER ==
[2017-12-08 22:12] VITALS: BP 122/69
== END 2017-12-08 23:50 | disposition left against medical advice (07) ==
LOC: ER 21:58
DX: Z53.21 Procedure and treatment not carried out due to patient leaving prior to being seen by health care provider (principal)

== ENCOUNTER 2018-12-15 12:03 | Emergency (ER) | payer OTHER ==
--- NOTE | 2018-12-15 12:36 | ER Document Report ---
ED Medical Screen (RME) - General Chief Complaint: Anxiety Stated Complaint: ANXIETY Time Seen by Provider: 12/15/18 12:31 Mode of Arrival: Ambulatory Information source: Patient Notes: Patient presents complaining of anxiety and depression. Patient states she is never been treated for this in the past. Patient states child is 1 year old and she is finally admitting her symptoms today. Patient denies any suicidal homicidal ideation. Patient does complain of some numbness to the right arm and leg. I have greeted and performed a rapid initial assessment of this patient. A comprehensive ED assessment and evaluation of the patient, analysis of test results and completion of the medical decision making process will be conducted by additional ED providers. TRAVEL OUTSIDE OF THE [place] IN LAST 30 DAYS: No - Related Data Allergies/Adverse Reactions: Penicillins Allergy (Verified 12/15/18 12:27) Past Medical History - Social History Chew tobacco use (# tins/day): No Frequency of alcohol use: None Drug Abuse: None Renal/ Medical History: Denies: Hx Peritoneal Dialysis Physical Exam - Vital signs Vitals: Temp Pulse Resp BP Pulse Ox 99.7 F 99 16 129/76 H 100 12/15/18 12:08 12/15/18 12:08 12/15/18 12:08 12/15/18 12:08 12/15/18 12:08 - General General appearance: Alert Notes: Tearful, heart rate rhythm regular - Psychological Associated symptoms: Tearful Course - Vital Signs Vital signs: Temp Pulse Resp BP Pulse Ox 99.7 F 99 16 129/76 H 100 12/15/18 12:08 12/15/18 12:08 12/15/18 12:08 12/15/18 12:08 12/15/18 12:08
[2018-12-15 14:18] LABS: ABSOLUTE BASOPHILS # (AUTO) 0.1 10^3/uL (0.0-0.2); ABSOLUTE EOSINOPHILS # (AUTO) 0.1 10^3/uL (0.0-0.6); ABSOLUTE LYMPHOCYTES (AUTO) 1.7 10^3/uL (0.5-4.7); ABSOLUTE MONOCYTES (AUTO) 0.6 10^3/uL (0.1-1.4); ABSOLUTE NEUT (AUTO) 5.9 10^3/uL (1.7-8.2); APPEARANCE,URINE CLEAR; BASOPHILS % (AUTO) 0.9 % (0-2); BILIRUBIN,URINE NEGATIVE (NEGATIVE); COLOR,URINE YELLOW; EOSINOPHILS % (AUTO) 1.2 % (0-6); GLUCOSE, URINE NEGATIVE (NEGATIVE); HEMATOCRIT 42.9 % (36.0-47.0); HEMOGLOBIN 14.3 g/dL (12.0-15.5); KETONES,URINE NEGATIVE (NEGATIVE); LEUKOCYTE ESTERASE,URINE NEGATIVE (NEGATIVE); LYMPHOCYTES % (AUTO) 20.4 % (13-45); MEAN CORPUSCULAR HEMOGLOBIN 28.9 pg (27.0-33.4); MEAN CORPUSCULAR HGB CONC 33.3 g/dL (32.0-36.0); MEAN CORPUSCULAR VOLUME 87 fl (80-97); MONOCYTES % (AUTO) 6.9 % (3-13); NITRITE,URINE NEGATIVE (NEGATIVE); PLATELET COUNT 222 10^3/uL (150-450); PROTEIN,URINE NEGATIVE (NEGATIVE); RED BLOOD COUNT 4.94 10^6/uL (3.72-5.28); RED CELL DISTRIBUTION WIDTH 13.9 % (11.5-14.0); SEGMENTED NEUTROPHILS % (AUTO) 70.6 % (42-78); TOTAL CELLS COUNTED % (AUTO) 100 %; URINE SPECIFIC GRAVITY 1.011; UROBILINOGEN,URINE NEGATIVE mg/dL (<2.0); WHITE BLOOD COUNT 8.4 10^3/uL (4.0-10.5)
[2018-12-15 14:31] LABS: ALBUMIN 4.9 g/dL (3.5-5.0); ALKALINE PHOSPHATASE 99 U/L (38-126); ANION GAP 12 (5-19); ASPARTATE AMINO TRANSFERASE 22 U/L (14-36); BILIRUBIN,DIRECT 0.1 mg/dL (0.0-0.4); BILIRUBIN,TOTAL 0.8 mg/dL (0.2-1.3); BLOOD UREA NITROGEN 12 mg/dL (7-20); CALCIUM 10.3 mg/dL (8.4-10.2); CARBON DIOXIDE 24 mmol/L (22-30); CHLORIDE 106 mmol/L (98-107); GLUCOSE 79 mg/dL (75-110); POTASSIUM 4.4 mmol/L (3.6-5.0); TOTAL PROTEIN 8.5 g/dL (6.3-8.2)
[2018-12-15 14:32] LABS: ACETAMINOPHEN < 10 ug/mL (10-30); ALCOHOL < 10 mg/dL (NONE DETECTED); SALICYLATE < 1.0 mg/dL (2.0-20.0)
[2018-12-15 14:38] LABS: URINE AMPHETAMINES SCREEN NEGATIVE; URINE BARBITURATES SCREEN NEGATIVE; URINE BENZODIAZEPINES SCREEN NEGATIVE; URINE COCAINE SCREEN NEGATIVE; URINE MARIJUANA (THC) SCREEN NEGATIVE; URINE METHADONE SCREEN NEGATIVE; URINE PHENCYCLIDINE SCREEN NEGATIVE
--- NOTE | 2018-12-15 17:19 | ER Document Report ---
ED General - General Chief Complaint: Anxiety Stated Complaint: ANXIETY Time Seen by Provider: 12/15/18 12:31 Mode of Arrival: Ambulatory Notes: Patient is a 23-year-old female presents to the emergency department for d epression and anxiety. Patient states she feels as though she has depression. States her child is 1-year-old. States she has "never been seen for this." Patient states she has been crying intermittently for the last couple of days which is why she presents to the emergency room. Patient's denying any suicidal or homicidal ideations. She is denying any visual or auditory hallucinations. Patient is denying any chest pain, nausea, vomiting, diarrhea, abdominal pain, dysuria. TRAVEL OUTSIDE OF THE [place] IN LAST 30 DAYS: No - Related Data Allergies/Adverse Reactions: Penicillins Allergy (Verified 12/15/18 12:27) Past Medical History - General Information source: Patient - Social History Smoking Status: Never Smoker Chew tobacco use (# tins/day): No Frequency of alcohol use: None Drug Abuse: None Family History: Reviewed & Not Pertinent Patient has suicidal ideation: No Patient has homicidal ideation: No Renal/ Medical History: Denies: Hx Peritoneal Dialysis Review of Systems - Review of Systems Constitutional: denies: Fever EENT: No symptoms reported Cardiovascular: No symptoms reported Respiratory: No symptoms reported Gastrointestinal: No symptoms reported Genitourinary: No symptoms reported Female Genitourinary: No symptoms reported Musculoskeletal: No symptoms reported Skin: No symptoms reported Hematologic/Lymphatic: No symptoms reported Neurological/Psychological: See HPI Physical Exam - Vital signs Vitals: Temp Pulse Resp BP Pulse Ox 99.7 F 99 16 129/76 H 100 12/15/18 12:08 12/15/18 12:08 12/15/18 12:08 12/15/18 12:08 12/15/18 12:08 - Notes Notes: GENERAL: Alert, interacts well. No acute distress. HEAD: Normocephalic, atraumatic. EYES: Pupils equal, round, and reactive to light. Extraocular movements intact. ENT: Oral mucosa moist, tongue midline. [Nares patent, no nasal septal hematoma, TM's intact.] NECK: Full range of motion. Supple. Trachea midline. LUNGS: Clear to auscultation bilaterally, no wheezes, rales, or rhonchi. No respiratory distress. HEART: Regular rate and rhythm. No murmur ABDOMEN: Soft, non-tender. Non-distended. Bowel sounds present in all 4 quadrants. EXTREMITIES: Moves all 4 extremities spontaneously. No edema, normal radial and dorsalis pedis pulses bilaterally. No cyanosis. BACK: no cervical, thoracic, lumbar midline tenderness. No saddle anesthesia, normal distal neurovascular exam. NEUROLOGICAL: Alert and oriented x3. Normal speech. cranial nerves II through XII grossly intact. PSYCH: Normal affect, depressed mood. SKIN: Warm, dry, normal turgor. No rashes or lesions noted. Course - Re-evaluation Re-evalutation: 12/15/18 17:17 I have discussed this case with Ru Overton, our mental health steamer blocker. She is recommending Celexa 20 mg daily [place]. Pt. continues to deny SI and HI. Stable for d/c. - Vital Signs Vital signs: Temp Pulse Resp BP Pulse Ox 99.7 F 99 16 129/76 H 100 12/15/18 12:08 12/15/18 12:08 12/15/18 12:08 12/15/18 12:08 12/15/18 12:08 - Laboratory Result Diagrams: 12/15/18 13:46 12/15/18 13:46 Laboratory results interpreted by me: 12/15/18 12/15/18 13:46 13:46 Calcium 10.3 H Total Protein 8.5 H Urine Blood LARGE H Salicylates < 1.0 L Acetaminophen < 10 L Discharge - Discharge Clinical Impression: Post depression Condition: Stable Disposition: HOME, SELF-CARE Additional Instructions: You have been seen and treated in the ED for your depression. [place] Please return to the ED for any concerns. Prescriptions: Citalopram Hydrobromide [Celexa 20 mg Tablet] 20 mg PO DAILY #30 tablet
[2018-12-15 17:50] VITALS: BP 125/82
--- NOTE | 2018-12-16 00:55 | EKG REPORT ---
SEVERITY:- ABNORMAL ECG - SINUS RHYTHM RIGHT ATRIAL ABNORMALITY : Confirmed by: Mary Ryan 16-Dec-2018 00:55:06
== END 2018-12-15 17:50 | disposition home or self-care (01) ==
LOC: ER 12:03
DX: O99.345 Other mental disorders complicating the puerperium (principal); F53.0 Postpartum depression; F41.9 Anxiety disorder, unspecified
CPT/HCPCS: 36415; 80053; 80307; 81001; 84703; 85025; 93005; 93010; 99283